=== PATIENT | male | born 2000 | race Two or more races ===

== ENCOUNTER 2025-01-29 15:36 | Emergency (ER) | payer MEDICAID, SELFPAY ==
[2025-01-29 15:48] VITALS: BP 152/89; PULSE 87; RESP 20; TEMP 37.1; O2SAT 96; BMI 35.6
--- NOTE | 2025-01-29 15:57 | EKG_ITS ---
[facility] Test Date: 2025-01-29 Pat Name: JOHN PHAM Department: Room: - Gender: Male Con[employer]: : 2000 Requested By: Jovanna Donald Order Number: [id number] Reading MD: Jovanna Donald Measurements Intervals [place] Rate: 101 P: 34 VA: 132 QRS: 63 QRSD: 86 T: 29 QT: 333 QTc: 433 Interpretive Statements SINUS TACHYCARDIA ABNORMAL RHYTHM ECG No previous ECG available for comparison /store/S0/[id number]/[id number].pdf
--- NOTE | 2025-01-29 15:57 | XR_ITS ---
Examination: PA lateral chest 2 views TECHNIQUE: Upright PA and lateral chest 2 views Exam date and time: January 29, 2025, 1726 hours INDICATIONS: Nausea and dizziness weakness beginning one week ago FINDINGS: Normal heart size. Lungs are clear. The osseous structures are intact. IMPRESSION: No active disease
--- NOTE | 2025-01-29 15:57 | XR_ITS ---
Examination: CT brain head without contrast. 2-D sagittal coronal reconstructions Date and time of exam:January 29, 2025, 1605 hours INDICATIONS: Right-sided facial numbness beginning today CTDI: vol (mGy):53.9 DLP: (mGycm):1181 Technique: Multiple CT axial sections of the brain have been obtained, 5 mm slice thickness. Contrast has not been administered. 2-D sagittal, coronal reconstructions have been obtained Low dose protocols were performed. One or more of the following dose reduction techniques were used; automated exposure control, adjustment of the mA and/or KV according to patient size, use of iterative reconstruction technique. Findings: No significant ventricular enlargement. Intra-axial or extra-axial hemorrhage density is not seen. No mass effect or midline shift Basal cisterns are not remarkable. Fourth ventricle is midline. Cranial vault intact. Significant acute pansinusitis Impression: Negative for acute hemorrhage, mass effect or midline shift As clinically warranted, brain MRI follow-up would best assess for demyelinating disease
--- NOTE | 2025-01-29 15:57 | PD.EDRME ---
Rapid Medical Screening Exam RME Arrival date/time: 01/29/25 15:36 This is a 24-year-old male that comes in with multiple complaints. Patient states that he is having right sided facial numbness and tingling. Patient states that he went to the clinic and they sent him to the emergency room. Patient also complains of feeling dizzy and weak. Patient states that when he was at the clinic he had a sudden onset of groin numbness but this has resolved. Patient also complains of shortness of breath. I did ask patient if he is anxious and he states he does feel anxious but patient states he is never felt this way. Patient denies any alcohol or drug use. Patient only reports history of back pain. I have greeted and performed a focused initial assessment of this patient. Initial appropriate labs ordered at this time. A comprehensive ED assessment and evaluation of the patient and analysis of all test and completion of medical decision making process will be conducted by additional ED provider. Chief Complaint: Dizziness Time Seen by Provider: 01/29/25 15:40 Vital signs: Vital Signs Temperature 98.7 F 01/29/25 15:48 Pulse Rate 87 01/29/25 15:48 Respiratory Rate 20 01/29/25 15:48 Blood Pressure 152/89 H 01/29/25 15:48 Pulse Oximetry (%) 96 01/29/25 15:48 Oxygen Delivery Method Room Air 01/29/25 15:48
[2025-01-29 16:53] LABS: Collection Type, Urine Voided
[2025-01-29 17:01] LABS: Basophils # (Auto) 0.1 Thou/mm3 (0.0-0.2); Basophils % (Auto) 1 % (0-2.5); Eosinophils # (Auto) 0.4 Thou/mm3 (0.0-0.5); Eosinophils % (Auto) 3 % (0-10); Hematocrit 47.1 % (41.0-53.0); Hemoglobin 16.6 g/dL (13.5-16.0); Immature Granulocytes % (Auto) 0 % (0-0); Immature Granulocytes Auto 0.04 Thou/mm3 (0.00-0.00); Lymphocytes # (Auto) 1.6 Thou/mm3 (1.0-4.8); Lymphocytes % (Auto) 13 % (10-50); Mean Corpuscular HGB Conc 35.2 g/dl (31.0-37.0); Mean Corpuscular Hemoglobin 30.6 pg (25.0-35.0); Mean Corpuscular Volume 87 fL (80-100); Monocytes % (Auto) 8 % (0-12); Neutrophils # (Auto) 9.8 Thou/mm3 (1.8-7.7); Neutrophils % (Auto) 76 % (37-80); Nucleated Red Blood Cell % 0 /100 WBC (0); Platelet Count 283 Thou/mm3 (140-440); RDW Standard Deviation 39.2 fL (35.1-43.9); Red Blood Count 5.42 Miln/mm3 (4.50-5.90); White Blood Count 12.9 Thou/mm3 (3.8-10.6)
[2025-01-29 17:07] LABS: INR 1.1 (0.9-1.3); Prothrombin Time 12.1 Seconds (9.0-12.2)
[2025-01-29 17:19] LABS: Alanine Aminotransferase 18 U/L (10-49); Albumin, Serum 4.8 gm/dL (3.5-5.0); Albumin/Globulin Ratio 1.7 (1.2-2.2); Alkaline Phosphatase 54 U/L (46-116); Anion Gap 9 (7-16); Aspartate Amino Transferase 27 U/L (0-34); BUN/Creatinine Ratio 10 Ratio (12-20); Bilirubin,Total 0.4 mg/dL (0.3-1.2); Blood Urea Nitrogen 11 mg/dL (9-23); Calcium 9.3 mg/dL (8.3-10.6); Calcium (Corrected) 9.3 mg/dL (8.5-10.1); Chloride 105 mMol/L (98-107); Creatinine (Component) 1.1 mg/dL (0.6-1.3); Estimated Creatinine Clearance 127.8 mL/min (>60); Globulin 2.9 gm/dL (2.3-3.5); Glucose 105 mg/dL (74-106); Osmolality,Calculated 286 (275-295); Sodium 144 mMol/L (136-145); Total Protein 7.7 gm/dL (5.7-8.2); Troponin I < 0.020 ng/mL (0.0-0.045); eGFR > 60 See Note
[2025-01-29 17:32] LABS: Bilirubin,Urine Negative (Negative); Blood,Urine Negative (Negative); Clarity,Urine Clear (Clear/Hazy); Color,Urine Colorless (Lt Yel-Yel); Culture Indicated,Urine Not Indicated; Glucose, Urine Negative (Negative); Ketones,Urine Negative (Negative); Leukocyte Esterase,Urine Negative (Negative); Nitrite,Urine Negative (Negative); PH,Urine 6.5 (5.0-7.0); Protein,Urine Negative (Neg - Trace); RBC,Urine 1 /hpf (0-3); Specific Gravity,Urine 1.008 (1.001-1.035); Squamous Epithelial Cell,Urine < 1 /hpf (0-5); Urobilinogen,Urine Negative mg/dL (0.0-1.0); WBC,Urine < 1 /hpf (0-5)
[2025-01-29 17:43] LABS: Amphetamine/Methamp Scrn,U Negative (Negative); Barbiturate Screen,Urine Negative (Negative); Benzodiazepines Screen,Urine Negative (Negative); Benzoylecgonine Screen, Ur Negative (Negative); Fentanyl Screen,Urine Negative (Negative); Opiate Screen,Urine Negative (Negative); THC Screen,Urine Negative (Negative)
--- NOTE | 2025-01-29 18:03 | EDNOTE_ITS ---
<Statement entered by Rajani Huddleston MD - 01/30/25 04:25> As co-signing physician, I was present and available for consult prn. I concur with the plan and care as documented by the midlevel provider. ED Dizzyness RME/HPI General Chief Complaint: Dizziness Stated Complaint: DIZZINESS, RIGHT SIDED NUMBNESS Time Seen by Provider: 01/29/25 15:40 Arrival date/time: 01/29/25 15:36 RME / HPI RME / HPI Narrative: 24-year-old male that comes in with multiple complaints. Patient states that he is having right sided facial numbness and tingling. Patient states that he went to the clinic and they sent him to the emergency room. Patient also complains of feeling dizzy and weak. Patient states that when he was at the clinic he had a sudden onset of groin numbness but this has resolved. Patient also complains of shortness of breath. I did ask patient if he is anxious and he states he does feel anxious but patient states he is never felt this way. Patient denies any alcohol or drug use. Patient only reports history of back pain. Patient is ambulatory. Related Data Previous Rx's ?Medication ?Instructions ?Recorded meclizine 25 mg tablet 25 mg PO BID PRN dizziness # 14 tabs 01/29/25 Allergies Allergy/AdvReac Type Severity Reaction Status Date / Time No Known Allergies Allergy Verified 02/11/23 14:52 Review of Systems Review of Systems Narrative Review of Systems: Review of system reviewed and within normal limits except mentioned in HPI ED Exam Narrative Physical exam: VITAL SIGNS: Reviewed. GENERAL APPEARANCE: Alert and interactive, follows commands, no acute distress, HEAD AND FACE: Non-traumatic. ENT: PERRL, pink conjunctivitis, eyelid no trauma, Mucous membrane moist. NECK: Supple, nontender, no nuchal rigidity. CHEST: No tenderness, no crepitus, no paradoxical movement, no retractions. LUNGS: Clear, well ventilated, symmetric, no rales, no wheezing, no ronchi, no stridor, good breath sounds bilaterally. HEART: Regular rate, regular rhythm, no murmur, no gallops. ABDOMEN: Soft, positive bowel sounds, nondistended, no guarding, nontender, no rebound, no masses, RECTAL: Deferred. GENITAL: Deferred. NEUROLOGICAL: Gross motor function intact sensory function intact, Appropriate for age. MUSCULOSKELETAL: low back nontender, full range of motion. EXTREMITIES: Nontender, full range of motion. SKIN: Color pink, dry, no rash, no lacerations, no abrasions, no contusions. LYMPHATICS: Deferred. Course Quality Measures none Orders Category Date Time Status EKG (ED ONLY) *Do not use* NOW Care 01/29/25 15:[address] head/brain wo con Stat Exams 01/29/25 15:57 Completed EKG (ED Only) Stat Exams 01/29/25 15:57 Draft XR chest 2V Stat Exams 01/29/25 15:57 Completed CBC Stat Lab 01/29/25 16:42 Completed Comprehensive Metabolic Panel Stat Lab 01/29/25 16:42 Completed Drug Screen,Urine Stat Lab 01/29/25 16:46 Completed PT [Prothrombin Time with INR] Stat Lab 01/29/25 16:42 Completed Troponin I Stat Lab 01/29/25 16:42 Completed Urinalysis, C/S if Indicated Stat Lab 01/29/25 16:46 Completed Vital Signs Vital signs: Vital Signs Temperature 98.7 F 01/29/25 15:48 Pulse Rate 87 01/29/25 15:48 Respiratory Rate 20 01/29/25 15:48 Blood Pressure 152/89 H 01/29/25 15:48 Pulse Oximetry (%) 96 01/29/25 15:48 Oxygen Delivery Method Room Air 01/29/25 15:48 Dizziness MDM Narrative MDM Narrative:: 24-year-old male that comes in with multiple complaints. Patient states that he is having right sided facial numbness and tingling. Patient states that he went to the clinic and they sent him to the emergency room. Patient also complains of feeling dizzy and weak. Patient states that when he was at the clinic he had a sudden onset of groin numbness but this has resolved. Patient also complains of shortness of breath. I did ask patient if he is anxious and he states he does feel anxious but patient states he is never felt this way. Patient denies any alcohol or drug use. Patient only reports history of back pain. Patient is ambulatory. Patient's workup today all came back normal including normal CT scan of the head. Results discussed with the patient. Patient told me that his symptoms is totally gone. Patient is ambulatory. Patient appears nontoxic and hemodynamically stable. Patient discharged home and instructed to follow-up with primary care provider in 24 to 48 hours. Instructed to return to the emergency department immediately if worsening of symptoms Patient data External records reviewed:: None Clinical information provided by:: patient Social determinants that could affect healthcare access:: none Patient has the following chronic illnesses:: None How is presenting disease/condition affected by chronic disease/condition?: no chronic disease Evaluation data The following diagnostics were reviewed and interpreted by me:: lab results, radiology exam(s) and EKG tracing(s) Lab and/or radiology exams considered but not ordered:: None Interpretation Summary: EKG showed normal sinus rhythm, ventricular rate of 101 bpm, no ST segment el evation or depression noted. Medications / Prescriptions Medications or Prescriptions considered but not ordered:: None Medication administrations:: None Consultations Consultation(s) initiated? (list below): No Diagnosis Dizziness Differential Diagnosis: benign paroxysmal positional vertigo and other (Dizziness,) Most likely diagnosis given after review of the tests above:: Dizziness Admission Indicated Admission indicated?: not indicated Explain why admission is indicated or not indicated:: None Admission Request Was there a request for admission?: No Disposition Plan Disposition Plan: Discharge Discharge Attestation Discharge Attestation: The patient and all family members were given an opportunity to ask questions and understood the discharge instructions. Discharge instructions specifically effects, indications for sooner follow up or return to the emergency department, and the expected course of current diagnosis. Patient condition: Stable Discharge Plan Plan Patient Disposition: HOME (Self Care) Discharge Disposition comment: Stable Prescriptions/Referrals Prescriptions/Med Rec: New meclizine 25 mg tablet 25 mg PO BID PRN (Reason: dizziness) Qty: 14 0RF Problem List Clinical Impression: Dizziness Patient/Caregiver Discharge Instructions Discharge Activity: activity as tolerated Education Materials: ED Dizziness, Uncertain Cause Additional Instructions: Thank you for the opportunity for serving you today. You are stable for discharged . You are advised to: Follow-up with your PCP in 1 to 2 days Return to ED for worsening of symptoms Increase oral fluids Take medication as prescribed as needed Print Language: Sami Stand Alone Forms: Jennifer Award Info., Patient Portal Info Letter CARMINE/DIONTE Supervising Physician JOSE J Supervising Physician: MD Pradeep
== END 2025-01-29 18:35 | disposition home or self-care (01) ==
LOC: SERX 19:27
PROVIDERS: Nurse Practitioner Family; Emergency Provider Emergency Medicine
DX: R42 Dizziness and giddiness (principal); R20.0 Anesthesia of skin; R53.1 Weakness; R11.0 Nausea; R00.0 Tachycardia, unspecified
CPT/HCPCS: 36415; 70450; 71046; 80053; 80307; 81001; 84484; 85025; 85610; 93005; 99284